=== PATIENT | male | born 1930 | race Caucasian/White ===

== ENCOUNTER → 2017-07-04 | Outpatient (CLI) | payer OTHER | LOC: FIMAGING 10:21 | PROVIDERS: ATTEND Internal Medicine Hematology & Oncology | DX: C79.51 Secondary malignant neoplasm of bone (principal); C61 Malignant neoplasm of prostate | CPT/HCPCS: 78306; A9503 ==

== ENCOUNTER → 2017-07-12 | Outpatient (CLI) | payer OTHER | LOC: FIMAGING 15:57 | PROVIDERS: ATTEND Internal Medicine Hematology & Oncology ==

== ENCOUNTER 2018-10-27 10:36 | Inpatient (IN) | payer MEDICAID, OTHER ==
[2018-10-27] MEDS ORDERED: IOPAMIDOL (ISOVUE-300) 100 ML BTL ONE (11:00)
[2018-10-27 11:01] LABS: PLATELET COUNT 155 10^3/uL (150-400)
--- NOTE | 2018-10-27 12:18 | EDPHY ---
General Time Seen by Provider: 10/27/18 10:52 Narrative: CHIEF COMPLAINT: Constipation HISTORY OF PRESENT ILLNESS: Patient presents by EMS and is seen at time of arrival with complaints of constipation lower abdominal pain. He is accompanied by his family at bedside. They report that over the past 2 days he has been increasingly weak with difficulty having bowel movements. He does have history of prostate cancer with multiple areas of metastases. He is not on chemotherapy but he is on steroids, Lupron and calcium therapy. He has had no bowel movement in 5 days. He has lower abdominal and rectal pain. No bleeding. No chest pain, fever, shortness of breath or cough. He is here visiting his family as they have been unable to return home due to weather. REVIEW OF SYSTEMS: 10 systems were reviewed and negative with the exception of the elements mentioned in the history of present illness. PCP: Located in [place] SPECIALISTS: Dr. Andrade PAST MEDICAL HISTORY: Metastatic Prostate cancer, PAST SURGICAL HISTORY: No recent surgical history SOCIAL HISTORY: Never smoker. Lives independently with his spouse in [place] FAMILY HISTORY: Noncontributory EXAMINATION: Vitals: Triage VS reviewed General Appearance: Alert, no distress. Frail. Nontoxic Head: normocephalic, atraumatic Eyes: Pupils equal and round, no conjunctival pallor or injection ENT, Mouth: Mucous membranes moist Neck: Normal inspection, supple, non-tender Respiratory: Mild rhonchi. No crackles Cardiovascular: Regular rate and rhythm. No murmur Gastrointestinal: Abdomen is soft and nondistended. Bowel sounds decreased all 4 quadrants. No tympany. No rigidity. No guarding. Mild tenderness in lower quadrants per Back: non-tender, no bony abnormalities Neurological: A&O, nonfocal, normal gait Skin: Warm and dry, no rash Extremities: Nontender, no pedal edema Psychiatric: Mood and affect normal DIFFERENTIAL DIAGNOSES: Including but not limited to constipation, obstipation, colonic obstruction, volvulus, small-bowel obstruction, sepsis MDM: 10:50 a.m. Two weeks history of lower abdominal pain and constipation with increasing pain over the past 24 hr. Does have a history of prostate cancer. His vital signs are within normal limits. I have ordered i-STAT to expedite his CT scan the abdomen pelvis. He has no respiratory or cardiac complaints. 11:30 a.m. Laboratory studies reveal leukocytosis with some liver abnormalities. This is consistent with known liver Mets. 12:15 p.m. Notified by radiologist Dr. Khan. CT scan abdomen pelvis does reveal constipation. There is also increased metastatic involvement of the sacrum as documented. I have re-evaluated the patient and the family is not comfortable taking home with likely to be admitted for observation and for his treatments constipation. I do feel this is reasonable given his comorbidities and age. 12:30 p.m. Case discussed with hospitalist. Patient be admitted to Dr. Malik. Admitted stable condition. SUPERVISION: Patient was independently examined, but I discussed the case with my secondary supervising physician Dr. Santacruz CONSULTATION: None. Hospitalist admission - Diagnostics Imaging Results: Imaging Impressions Abdomen CT 10/27/18 10:51 Impression: 1. Interval decrease in periaortic and pelvic lymphadenopathy as detailed above. 2. Progression of osseous metastatic disease with some loss of the cortex especially around the sacrum extending in the presacral region around neuroforamen as well as into the caudal aspect of the spinal canal and posterior to L5 as well as involving the right posterior iliac wing extending into the adjacent soft tissues. No new logic fracture seen. 3. Development of small bibasilar pleural effusions with adjacent compressive atelectatic change. 4. Small pulmonary nodules suspected at the lung bases similar to the prior study Findings discussed with [facility] PAC at 12:17 hour, 10/27/2018. Chest X-Ray 10/27/18 10:53 Impression: 1. Left basilar atelectasis versus pneumonia. 2. Extensive sclerotic bone metastasis. Imaging: Discussed imaging studies w/ outside plant technician Radiologist, I viewed and interpreted images myself - History History Review: I reviewed the patient's medical records, I obtained additional history from the patient's family Smoking Status: Never smoked - Objective Vital Signs: Initial Vital Signs Temperature (C) 98.8 F 10/27/18 10:36 Heart Rate 91 10/27/18 10:36 Blood Pressure 110/66 10/27/18 10:36 O2 Sat (%) 94 10/27/18 10:36 O2 Delivery Mode Nasal Cannula O2 (L/minute) 2 Allergies/Adverse Reactions: Penicillins Allergy (Verified 10/27/18 14:09) Rash Home Medications: Medication Instructions Recorded Herbals/Supplements -Info Only 1 each PO AD 09/02/13 Naproxen Sodium [Aleve 220 MG (*)] 220 mg PO BID PRN 09/05/15 Hydrocodone/APAP 5/325 [[place] 1 each PO Q4H PRN 10/27/18 5/325 (*)] Levothyroxine [Synthroid 50 mcg 50 mcg PO DAILY06 10/27/18 (*)] Multivitamins [Multivitamin (*)] 1 each PO DAILY 10/27/18 Laboratory Results: Laboratory Results 10/27/18 10:45 10/27/18 10:45 10/27/18 10/27/18 10/27/18 11:31 11:03 10:50 WBC RBC Hgb POC Hgb 10.5 gm/dL L gm/dL 10.9 gm/dL L gm/dL (13.7-17.5) (13.7-17.5) Hct POC Hct 31 % L % 32 % L % (40-51) (40-51) MCV MCH MCHC RDW Plt Count MPV Neut % (Auto) Lymph % (Auto) [place] % (Auto) Eos % (Auto) Baso % (Auto) Nucleat RBC Rel Count Absolute Neuts (auto) Absolute Lymphs (auto) Absolute Monos (auto) Absolute Eos (auto) Absolute Basos (auto) Absolute Nucleated RBC Immature Gran % Seg Neutrophils % Band Neutrophils % Lymphocytes % Monocytes % Eosinophils % Basophils % Metamyelocytes % Myelocytes % Promyelocytes % Blast Cells % Immature Gran # Absolute Seg Neuts Absolute Band Neuts Absolute Lymphocytes Absolute Monocytes Absolute Eosinophils Absolute Basophils Absolute Metamyelocyte Absolute Myelocytes Absolute Promyelocytes Absolute Plasma Cells Nucleated RBCs Absolute Blast Cells Plasma Cells % Platelet Estimate Polychromasia Echinocytes VBG Lactic Acid 1.4 mmol/L mmol/L (0.7-2.1) POC Sodium 135 mEq/L mEq/L 132 mEq/L L mEq/L (135-145) (135-145) Sodium POC Potassium 4.2 mEq/L mEq/L 4.0 mEq/L mEq/L (3.3-5.0) (3.3-5.0) Potassium POC Chloride 103 mEq/L mEq/L 101 mEq/L mEq/L (97-110) (97-110) Chloride Carbon Dioxide Anion Gap POC BUN 23 mg/dL mg/dL 19 mg/dL mg/dL (7-23) (7-23) BUN Creatinine POC Creatinine 0.7 mg/dL mg/dL 0.8 mg/dL mg/dL (0.7-1.3) (0.7-1.3) Estimated GFR Glucose POC Glucose 75 mg/dL mg/dL 82 mg/dL mg/dL (70-100) (70-100) Calcium Total Bilirubin Conjugated Bilirubin Unconjugated Bilirubin AST ALT Alkaline Phosphatase Total Protein Albumin Lipase TSH 10/27/18 10/27/18 10/27/18 10:45 10:45 10:45 WBC 19.88 10^3/uL H 10^3/uL (3.80-9.50) RBC 3.65 10^6/uL L 10^6/uL (4.40-6.38) Hgb 11.2 g/dL L g/dL (13.7-17.5) POC Hgb Hct 32.7 % L % (40.0-51.0) POC Hct MCV 89.6 fL fL (81.5-99.8) MCH 30.7 pg pg (27.9-34.1) MCHC 34.3 g/dL g/dL (32.4-36.7) RDW 16.2 % H % (11.5-15.2) Plt Count 155 10^3/uL 10^3/uL (150-400) MPV 11.5 fL fL (8.7-11.7) Neut % (Auto) Not Reported Lymph % (Auto) Not Reported [place] % (Auto) Not Reported Eos % (Auto) Not Reported Baso % (Auto) Not Reported Nucleat RBC Rel Count Not Reported Absolute Neuts (auto) Not Reported Absolute Lymphs (auto) Not Reported Absolute Monos (auto) Not Reported Absolute Eos (auto) Not Reported Absolute Basos (auto) Not Reported Absolute Nucleated RBC Not Reported Immature Gran % Not Reported Seg Neutrophils % 73.0 % % Band Neutrophils % 9.0 % % Lymphocytes % 5.0 % % Monocytes % 11.0 % % Eosinophils % 0.0 % % Basophils % 0.0 % % Metamyelocytes % 2.0 % % Myelocytes % 0.0 % % Promyelocytes % 0.0 % % Blast Cells % 0.0 % % Immature Gran # Not Reported Absolute Seg Neuts 14.51 10^3/uL H 10^3/uL (1.70-6.50) Absolute Band Neuts 1.79 10^3/uL H 10^3/uL (0.00-0.70) Absolute Lymphocytes 0.99 10^3/uL L 10^3/uL (1.00-3.00) Absolute Monocytes 2.19 10^3/uL H 10^3/uL (0.30-0.80) Absolute Eosinophils 0.00 10^3/uL L 10^3/uL (0.03-0.40) Absolute Basophils 0.00 10^3/uL L 10^3/uL (0.02-0.10) Absolute Metamyelocyte 0.40 10^3/mL H 10^3/mL (0.00-0.00) Absolute Myelocytes 0.00 10^3/mL 10^3/mL (0.00-0.00) Absolute Promyelocytes 0.00 10^3/uL 10^3/uL (0.00-0.00) Absolute Plasma Cells 0.00 10^3/uL 10^3/uL (0.00-0.00) Nucleated RBCs 0 /100 WBC /100 WBC (0-0) Absolute Blast Cells 0.00 10^3/uL 10^3/uL (0.00-0.00) Plasma Cells % 0.0 % % Platelet Estimate ADEQUATE (ADEQ) Polychromasia 1+ H Echinocytes 1+ H VBG Lactic Acid POC Sodium Sodium 130 mEq/L L mEq/L (135-145) POC Potassium Potassium 4.3 mEq/L mEq/L (3.5-5.2) POC Chloride Chloride 104 mEq/L mEq/L (97-110) Carbon Dioxide 20 mEq/l L mEq/l (22-31) Anion Gap 6 mEq/L mEq/L (6-14) POC BUN BUN 20 mg/dL mg/dL (7-23) Creatinine 0.8 mg/dL mg/dL (0.7-1.3) POC Creatinine Estimated GFR > 60 Glucose 75 mg/dL mg/dL (70-100) POC Glucose Calcium 7.0 mg/dL L mg/dL (8.5-10.4) Total Bilirubin 1.4 mg/dL mg/dL (0.1-1.4) Conjugated Bilirubin 0.7 mg/dL H mg/dL (0.0-0.5) Unconjugated Bilirubin 0.7 mg/dL mg/dL (0.0-1.1) AST 79 IU/L H IU/L (17-59) ALT 72 IU/L IU/L (21-72) Alkaline Phosphatase 335 IU/L H IU/L (38-126) Total Protein 4.8 g/dL L g/dL (6.3-8.2) Albumin 2.2 g/dL L g/dL (3.5-5.0) Lipase < 10 IU/L L IU/L (23-300) TSH Pending Medications Given: Polyethylene Glycol (Miralax) 17 gm PO DAILY MAREN PRN Reason: Protocol Stop: 04/25/19 12:59 Last Admin: 10/27/18 13:22 Dose: 17 gm Discontinued Medications Fentanyl (Sublimaze) 50 mcg IVP ONCE ONE Stop: 10/27/18 13:15 Last Admin: 10/27/18 13:19 Dose: 50 mcg Point of Care Test Results: Chemistry 10/27/18 10/27/18 11:03 10:50 POC Sodium 135 mEq/L mEq/L 132 mEq/L L mEq/L (135-145) (135-145) POC Potassium 4.2 mEq/L mEq/L 4.0 mEq/L mEq/L (3.3-5.0) (3.3-5.0) POC Chloride 103 mEq/L mEq/L 101 mEq/L mEq/L (97-110) (97-110) POC BUN 23 mg/dL mg/dL 19 mg/dL mg/dL (7-23) (7-23) POC Creatinine 0.7 mg/dL mg/dL 0.8 mg/dL mg/dL (0.7-1.3) (0.7-1.3) POC Glucose 75 mg/dL mg/dL 82 mg/dL mg/dL (70-100) (70-100) ISTAT H&H 10/27/18 10/27/18 11:03 10:50 POC Hgb 10.5 gm/dL L gm/dL 10.9 gm/dL L gm/dL (13.7-17.5) (13.7-17.5) POC Hct 31 % L % 32 % L % (40-51) (40-51) Departure - Departure Disposition: [facility] Inpatient Acute Clinical Impression: Abdominal pain Qualifiers: Abdominal location: lower abdomen, unspecified Qualified Code(s): R10.30 - Lower abdominal pain, unspecified Constipation Qualifiers: Constipation type: unspecified constipation type Qualified Code(s): K59.00 - Constipation, unspecified Condition: Good
[2018-10-27] MEDS ORDERED: LACTULOSE 20 GM/30 ML UDCUP PO PRN (12:51)
[2018-10-27] MEDS ORDERED: MAGNESIUM HYDROXIDE 30 ML UDCUP PO PRN (12:51)
[2018-10-27] MEDS ORDERED: BISACODYL 10 MG SUPP PR PRN (12:51)
[2018-10-27] MEDS ORDERED: fentaNYL 100 MCG/2 ML INJ IVP ONE (13:14)
[2018-10-27] MEDS ORDERED: fentaNYL 100 MCG/2 ML INJ ONE (13:15)
[2018-10-27] MEDS ORDERED: POLYETHYLENE GLYCOL 3350 17 GM PKT ONE (13:17)
[2018-10-27] MEDS: POLYETHYLENE GLYCOL 3350 17 GM PKT PO SCH (13:22)
--- NOTE | 2018-10-27 14:29 | ASMTCMCOM ---
"CM Note CM Note Notes: 88 year old male admitted via ED with c/o increasing constipation and weakness. 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 Normally lives with his in [facility]. His PCP is there but he is followed by Dr. Andrade at [facility]. CM to follow for needs.| Plan: TBD Date Signed: 10/27/2018 02:28 PM Electronically Signed By:Elisabeth Mauro RN"
[2018-10-27] MEDS ORDERED: ONDANSETRON DISINTEGRATING 4 MG TAB PO PRN (15:07)
[2018-10-27] MEDS ORDERED: ONDANSETRON 4 MG/2 ML VIAL IVP PRN (15:07)
[2018-10-27] MEDS ORDERED: NAPROXEN SODIUM 220 MG TAB PO PRN (15:11)
[2018-10-27] MEDS ORDERED: PHENYLEPHRINE HCL 1 SUPP PR PRN (15:26)
--- NOTE | 2018-10-27 16:02 | GHP ---
DATE OF ADMISSION: 10/27/2018 CHIEF COMPLAINT: Constipation with ongoing back pain secondary to metastatic prostate cancer. HISTORY OF PRESENT ILLNESS: The patient is an 88-year-old gentleman who has known metastatic prostate cancer with multiple areas of metastasis who presented to the emergency room due to complaints of constipation. Approximately 2 weeks ago, he was seen by Dr. Andrade, his oncologist. It was noted that he had a high calcium level due to poor hydration. He also at that time was noted to have ongoing pain. It was recommended that he take steroids and pain meds. Initially, he improved, but then over the last 2 weeks, he has deteriorated. His main complaint is that he has been constipated, having hemorrhoids, and has not been eating and drinking well. Most of my information is being collected from his and daughter who are at the bedside. He is extremely hard of hearing. He was also feeling quite poorly. He did try a laxative without improvement. His last regular bowel movement was approximately 2 weeks ago. During my interview, when I asked him if he is in pain, he said he is having pain in his back, hips, thighs. He is having overall generalized body pain secondary from his cancer. He denies any night sweats, shortness of breath. Says his vision is somewhat blurry. He denies any problems with urination except that he has chronic difficulty with starting the flow. PAST MEDICAL HISTORY: 1. Idiopathic pancreatitis. 2. Constipation. 3. Protein calorie malnutrition. 4. Prostate cancer with diffuse osseous metastasis throughout the entire skeletal system. 5. He has had digestive problems since he was a child. PAST SURGICAL HISTORY: 1. Inguinal hernia repair. 2. Left hip replacement. SOCIAL HISTORY: He is . He used to live here in [place], but moved to the [place] area. He has been visiting his daughter here in the [place] area since early September. He is . His is at the bedside. FAMILY HISTORY: Reviewed and noncontributory. MEDICATIONS: Include a multivitamin 1 tab daily, herbal supplements 1 tab daily , Aleve 220 mg p.o. b.i.d. p.r.n., Synthroid 50 mcg daily, hydrocodone/APAP 5/ 325 one tab every 4 hours. ALLERGIES: Penicillin causes a rash. REVIEW OF SYSTEMS: A 10-point review of systems was performed, was negative other than pertinent positives in the HPI and Past Medical History. PHYSICAL EXAM: GENERAL: The patient is an 88-year-old male who appears very dehydrated and overall in fair health. VITAL SIGNS: Blood pressure is 111/60, heart rate 92, respiratory rate 16, O2 sats on 2 L are 94%, temperature 36.4 Celsius. EYES: Pupils are equal and reactive. EOMs are intact. No conjunctival injection noted. ENT: He is very hard of hearing. He has hearing aids in place. NECK: Trachea is midline. CARDIOVASCULAR: He is in a regular rate and rhythm. No murmurs, rubs, gallops noted. CHEST/LUNGS: Normal respiratory effort. Diminished at the bases, but otherwise clear, without wheezes, rales, rhonchi. ABDOMEN: Soft, nontender. He has bowel sounds noted in all 4 quadrants. SKIN: No rashes, ulcer. He has trace ankle edema. MUSCULOSKELETAL: He has equal upper and lower body strength. PSYCHIATRIC: He is alert and oriented. Normal mood, affect. Normal judgment, insight, and normal memory. DATA REVIEWED: A chemistry showed sodium 135, potassium 4.2, chloride of 103, glucose of 75, creatinine 0.7, calcium is 7, alkaline phosphatase is 335. His conjugated bilirubin is 0.7, unconjugated 0.7, albumin is 2.2. CBC: White blood cell count is 19.88, hemoglobin 11.2, hematocrit of 32.7. Second hemoglobin was checked which is 10.9. Venous lactic acid is 1.4. Urinalysis shows 4+ urobilinogen, trace ketones and a specific gravity of 1.035. IMAGIN. A CT of the abdomen was performed. This showed interval decrease in periaortic and pelvic lymphadenopathy as detailed in the report. He has progression of osseous metastatic disease with some loss of the cortex, especially around the sacrum, extending in the presacral region, around the neural foramen, as well as into the caudal aspect of the spinal canal and posterior to L5, as well as involving the right posterior iliac wing extending into the adjacent soft tissues. No new fractures seen. He has development of small basilar pleural effusions with adjacent compressive atelectatic change. He has small pulmonary nodules suspected at the lung bases, similar to a prior study. 2. Chest x-ray shows a left basilar atelectasis versus pneumonia. He has extensive bone metastasis. I reviewed the patient's care with Ismael Culp, physician assistant produce manager, in the emergency room. ASSESSMENT/PLAN: 1. Severe constipation. Will start him on a bowel regimen. He appears very dehydrated. Will gently hydrate him overnight. If he has no response with the regimen, could do a trial of magnesium citrate or a partial GoLYTELY prep. Check a TSH. Avoid narcotics and do a trial of tramadol and Tylenol. 2. Leukocytosis. This may be stress induced and also, he appears very dehydrated. Will recheck his labs in the morning. 3. Hypocalcemia with a recent history of hypercalcemia. Will recheck labs in the morning. 4. Prostate cancer with diffuse metastasis. Will let Oncology know of the patient's admission. 5. Pain due to bone metastasis. Trial of tramadol. May need more aggressive treatment. 6. Hyponatremia. Likely from hypovolemia. Will check urine studies. 7. Code status: Do Not Resuscitate. 8. Length of stay: He will likely require less than a 2-midnight stay, which will make him observation status. This can be reevaluated in the morning. /[id number]/MODL MTDD
[2018-10-27] MEDS: traMADol 50 MG TAB PO PRN (16:27)
[2018-10-27] MEDS: HYDROCODONE/APAP 5/325 TAB PO PRN ×2 (16:27→20:37)
[2018-10-27] MEDS: SENNOSIDES/DOCUSATE SODIUM TAB PO SCH (20:37)
[2018-10-28 04:49] LABS: PLATELET COUNT 140 10^3/uL (150-400)
[2018-10-28] MEDS: LEVOTHYROXINE 50 MCG TAB PO SCH (05:20)
[2018-10-28] MEDS ORDERED: ENOXAPARIN 40 MG/0.4 ML SYR SC SCH (09:00)
[2018-10-28] MEDS: SENNOSIDES/DOCUSATE SODIUM TAB PO SCH (10:39)
[2018-10-28] MEDS: POLYETHYLENE GLYCOL 3350 17 GM PKT PO SCH (10:39)
[2018-10-28] MEDS: MULTIVITAMINS 1 EACH TAB PO SCH (10:39)
[2018-10-28] MEDS: HYDROCODONE/APAP 5/325 TAB PO PRN ×3 (10:45→23:16)
[2018-10-28] MEDS ORDERED: MAGNESIUM CITRATE 300 ML BOTTLE PO ONE (13:43)
--- NOTE | 2018-10-28 13:50 | HOSPPROG ---
Hospitalist Progress Note Assessment/Plan: 88yo M with prostate cancer with diffuse osseous metastases here with constipation and low back pain. 1. Constipation: Likely related to recent hypercalcemia and opioids. - Trial mag citrate, enema, manual disimpaction 2. Acute on chronic low back/sacral pain: Neuro intact. CT with progression of osseus mets. - Discussed with Dr Brandt, plan for caudal epidural tomorrow - Tramadol, hydrocodone PRN 3. Hyponatremia: Urine studies c/w SIADH. Also element of poor PO. - Continue gentle IVF - Recheck Na this afternoon. If worsening, will stop fluids 4. Hypocalcemia: Suspect r/t lack of PO intake. Replete and monitor. 5. Leukocytosis: Likely r/t recent steroids. No s/s infection. Monitor. 6. Anemia: Chronic and near baseline. 7. Metastatic prostate cancer: Will alert oncology of admission. Consider palliative care. VTE ppx: hold LMWH with procedure, start SCDs Code: DNR Diet: clears, NPO at midnight Dispo: Switch to inpatient Subjective: No BM. Frustrated that nothing has helped. Also with low back/ sacral pain. Both pain and constipation are very irritating to him. Objective: Vital Signs Temp Pulse Resp BP Pulse Ox 36.6 C 96 16 94/48 L 94 10/28/18 08:44 10/28/18 08:44 10/28/18 08:44 10/28/18 08:44 10/28/18 08:44 Laboratory Results 10/28/18 03:54 10/28/18 03:54 10/27/18 10/28/18 10/29/18 05:59 05:59 05:59 Intake Total 1100 200 Output Total 455 250 Balance 645 -50 - Physical Exam Constitutional: no apparent distress, other (elderly, hard of hearing) Eyes: PERRL, anicteric sclera, EOMI Ears, Nose, Mouth, Throat: hearing normal, ears appear normal, no oral mucosal ulcers, dry mucous membranes Cardiovascular: regular rate and rhythym, no murmur, rub, or gallop Respiratory: no respiratory distress, no rales or rhonchi, clear to auscultation Gastrointestinal: normoactive bowel sounds, soft, non-tender abdomen, no palpable masses, distension Genitourinary: no bladder fullness, no bladder tenderness, no renal bruits Skin: no rashes or abrasions, no fluctuance, no induration Musculoskeletal: full muscle strength, no muscle tenderness, normal joint ROM Neurologic: AAOx3, sensation intact bilaterally Psychiatric: interacting appropriately, not anxious, not encephalopathic, thought process linear ICD10 Worksheet Patient Problems: Problems Problem Status Onset Abdominal pain Acute Constipation Acute LAD (lymphadenopathy), intra-abdominal Acute Pancreatitis, acute Acute Prostate enlargement Acute
[2018-10-28] MEDS ORDERED: LACTULOSE 20 GM/30 ML UDCUP PO PRN (13:59)
[2018-10-28] MEDS ORDERED: LACTULOSE 20 GM/30 ML UDCUP PO SCH (16:00)
--- NOTE | 2018-10-28 17:20 | GCON ---
INPATIENT ONCOLOGY CONSULTATION DATE OF CONSULTATION: 10/28/2018 REFERRING PHYSICIAN: Gabino Dunlap MD OUTPATIENT ONCOLOGIST: Edward Andrade MD REASON FOR ADMISSION: Metastatic prostate cancer and constipation. HISTORY OF ILLNESS: The patient is an 88-year-old man with a history of castrate-resistant metastati c prostate cancer. He spends most of the year in [place], but lives here occasionally and sees Dr. Andrade. He has been treated with Lupron and bicalutamide in the past for his metastatic prostat e cancer which is primarily metastatic to bone. Initially, he had a good response, but more recently his PSA has been rising sharply. He was noted to be moderately hypercalcemic on October 15 with a calcium of 11.8 and he received a dose of Zometa as well as IV fluids in clinic. He is on oxycodon e for bone metastases, but says that he has not changed the dose recently. Dr. Andrade had recommend ed that he start on Xtandi, but the patient wanted to wait till he returned to [place] to speak to his oncologist there. The patient states that he has not had a bowel movement in 2-1/2 weeks and came to the hospital seeki ng help with that. He denies worsening pain. CT shows overall stable lymph nodes and bone metastase s including metastasis to the sacrum and L5. PAST MEDICAL HISTORY: Metastatic prostate cancer as described above, otherwise unremarkable. CURRENT MEDICATIONS: Include [place], Lovenox 40 mg daily, Synthroid, MiraLAX, tramadol. ALLERGIES: To penicillin. FAMILY HISTORY: Noncontributory. SOCIAL HISTORY: He is a nonsmoker, nondrinker. Lives with family. REVIEW OF SYSTEMS: Aside from the pertinent positives in the HPI, a 14-point review of systems was n egative. EXAMINATION: VITALS: Temperature is 36.6, blood pressure 94/48, heart rate 96, oxygen saturation 94 % on 2 L nasal cannula. GENERAL: He was an elderly man in no acute distress. HEENT: Sclerae anict kaushik. Oropharynx is clear. NECK: Supple without lymphadenopathy. LUNGS: Clear to auscultation bi laterally. CARDIAC: Regular rate and rhythm. No murmurs, gallops, rubs. ABDOMEN: Normoactive bow el sounds. Nontender, non-distended. EXTREMITIES: Without edema. NEUROLOGICAL: He is alert and x 3. Strength and sensation were grossly intact. LABORATORY DATA: White count 16.3, hemoglobin 10.2, platelets 140. Sodium 132, potassium 4.3, chlor john 105, bicarb 19, BUN 26, creatinine 1.0, alkaline phosphatase 247, albumin 1.9. TSH 2.59. Ionize d calcium was low at 1.05. 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 His primary acute i ssue appears to be constipation. This may have been triggered by the hypercalcemia few weeks ago, bu t his calcium has now normalized. He does not appear to be having worsening pain from any of his met astases. RECOMMENDATIONS: 1. Bowel regimen to relieve constipation. We will also give him hydration and encourage ambulation. 2. Agree with Dr. Andrade that the next step in his prostate cancer therapy would be to add Xtandi o r Zytiga. The patient would like to defer this until he sees his oncologist in [place], which s eems reasonable. Thank you for the consultation. We will continue to follow patient with you while he is in the [facility]. /[id number]/MODL
--- NOTE | 2018-10-28 18:08 | PDMN ---
Medical Necessity Medical necessity: Change to inpt as of 10/28/18 @ 0162. Pt meets inpt criteria per MD order and MCG M-63, Back Pain. 88 y/o w/metastatic prostate cancer admitted w/severe constipation and low back pain. Upgraded to inpt for persistent constipation, persistent severe low back pain. CT shows progression of osseus mets, plan for caudal epidural tomorrow. Hyponatremia (132), urine studies consistent w/SIADH, cont IVF. Est LOS>2MN for med nec ongoing eval/ management of above.
[2018-10-28] MEDS: NS 1,000 ML IV SCH (18:40)
[2018-10-28] MEDS: traMADol 50 MG TAB PO PRN (18:40)
--- NOTE | 2018-10-28 21:32 | ASMTCMCOM ---
CM Note CM Note Notes: Patient plan of care reviewed in am rounds. Willian is an 88 year old male who is visiting from [place] with his daughter. He has had increasing weakness, dehydration and constipation over the last few weeks. Per CT his disease is advancing and he may be palliative care appropriate. CM to follow for needs. Plan: TBD Date Signed: 10/28/2018 01:47 PM Electronically Signed By:Elisabeth Mauro RN
[2018-10-29] MEDS: SENNOSIDES/DOCUSATE SODIUM TAB PO SCH ×3 (00:30→23:47)
[2018-10-29] MEDS: traMADol 50 MG TAB PO PRN (01:11)
[2018-10-29] MEDS: NS 1,000 ML IV SCH ×2 (01:15→21:51)
[2018-10-29] MEDS: LEVOTHYROXINE 50 MCG TAB PO SCH (06:15)
[2018-10-29] MEDS: MULTIVITAMINS 1 EACH TAB PO SCH (08:34)
[2018-10-29] MEDS: POLYETHYLENE GLYCOL 3350 17 GM PKT PO SCH (08:38)
--- NOTE | 2018-10-29 11:51 | SOAPPROG ---
SOAP Progress Note Assessment/Plan: Assessment: 1. Castrate resistant metastatic prostate cancer 2. Constipation 3. Hemorrhoids Plan: - consider surgical consult re: hemorrhoid, though I advised pt that conservative measures often work best - no Rx for prostate cancer in the hospital - will sign off at this point as no ongoing inpatient oncologic issues. Pt plans to f/u with his oncologist in [place] after discharge. 10/29/18 11:49 Subjective: large BM last night. complaining re: hemorrhoid, would like it surgically removed. Objective: exam: unchanged Vital Signs Temp Pulse Resp BP Pulse Ox 36.4 C 83 12 92/50 L 91 L 10/29/18 08:29 10/29/18 08:29 10/29/18 08:29 10/29/18 08:29 10/29/18 08:29 Laboratory Results 10/29/18 04:11 10/29/18 04:11 10/28/18 10/29/18 10/30/18 05:59 05:59 05:59 Intake Total 2500 Output Total 200 Balance 2300 ICD10 Worksheet Patient Problems: Problems Problem Status Onset Abdominal pain Acute Constipation Acute LAD (lymphadenopathy), intra-abdominal Acute Pancreatitis, acute Acute Prostate enlargement Acute
[2018-10-29] MEDS: HYDROCODONE/APAP 5/325 TAB PO PRN ×2 (12:44→21:41)
--- NOTE | 2018-10-29 15:04 | ASMTCMCOM ---
CM Note CM Note Notes: Patient plan of care reviewed in am rounds. He is still having c/o constipation. Per therapy he is deconditioned and may need SNF rehab. He lives in [place] and wishes to return there. CM to follow for needs. Plan: TBD Date Signed: 10/29/2018 03:03 PM Electronically Signed By:Elisabeth Mauro RN
--- NOTE | 2018-10-29 15:59 | HOSPPROG ---
Hospitalist Progress Note Assessment/Plan: 88yo M with prostate cancer with diffuse osseous metastases here with constipation. 1. Constipation: Improving. Related to recent hypercalcemia, dehydration, opioids. - Mineral oil enema today - May need manual disimpaction - Consider partial golytely prep tomorrow if not improving. Continue additional bowel regimen 2. Chronic low back/sacral pain: Neuro intact. CT with progression of osseus mets. - Discussed with Dr Brandt, could consider caudal epidural but he's not having increased pain at this time so will hold. - Tramadol, hydrocodone PRN 3. Hyponatremia: Stable. Urine studies c/w SIADH. Also element of poor PO. - Continue gentle IVF, monitor daily 4. Hypocalcemia: Suspect r/t lack of PO intake. Replete and monitor. 5. Leukocytosis: Down-trending. Likely r/t recent steroids. No s/s infection. Monitor. 6. Anemia: Chronic and near baseline. 7. Metastatic prostate cancer: Oncology aware of admission. Consider palliative care. VTE ppx: LMWH Code: DNR Diet: regular Dispo: Remain inpatient until having BM. unsafe to dc as high risk for bowel obstruction Subjective: Frustrated with some of his care. He has had some BMs. Still feels like large ball of stool is there. Minimal abdominal pain. Decided against epidural injection as actually not having back pain, just constipated. Objective: Vital Signs Temp Pulse Resp BP Pulse Ox 36.4 C 83 16 94/52 L 92 10/29/18 12:22 10/29/18 12:22 10/29/18 12:22 10/29/18 12:22 10/29/18 12:22 Laboratory Results 10/29/18 04:11 10/29/18 04:11 10/28/18 10/29/18 10/30/18 05:59 05:59 05:59 Intake Total 2500 Output Total 200 Balance 2300 - Physical Exam Constitutional: other (frail, elderly) Eyes: PERRL, anicteric sclera, EOMI Ears, Nose, Mouth, Throat: moist mucous membranes, hearing normal, ears appear normal, no oral mucosal ulcers Cardiovascular: regular rate and rhythym, no murmur, rub, or gallop, No edema Respiratory: no respiratory distress, no rales or rhonchi, clear to auscultation Gastrointestinal: normoactive bowel sounds, tenderness (lower), No no palpable masses, No guarding Genitourinary: no bladder fullness, no bladder tenderness, no renal bruits Skin: no rashes or abrasions, no fluctuance, no induration Musculoskeletal: full muscle strength, no muscle tenderness, normal joint ROM Neurologic: AAOx3, sensation intact bilaterally Psychiatric: interacting appropriately, not anxious, not encephalopathic, thought process linear ICD10 Worksheet Patient Problems: Problems Problem Status Onset Abdominal pain Acute Constipation Acute LAD (lymphadenopathy), intra-abdominal Acute Pancreatitis, acute Acute Prostate enlargement Acute
[2018-10-30] MEDS: HYDROCODONE/APAP 5/325 TAB PO PRN ×3 (03:20→21:08)
[2018-10-30] MEDS: LEVOTHYROXINE 50 MCG TAB PO SCH (06:42)
[2018-10-30] MEDS: SENNOSIDES/DOCUSATE SODIUM TAB PO SCH ×2 (08:50→21:09)
[2018-10-30] MEDS: MULTIVITAMINS 1 EACH TAB PO SCH (08:51)
[2018-10-30] MEDS: POLYETHYLENE GLYCOL 3350 17 GM PKT PO SCH ×2 (08:51→21:05)
--- NOTE | 2018-10-30 10:55 | HOSPPROG ---
Hospitalist Progress Note Assessment/Plan: 88yo M with prostate cancer with diffuse osseous metastases here with constipation. 1. Constipation: Improving. Much better after enema. Related to recent hypercalcemia, dehydration, opioids. - Hold on futher suppositories/enema - Continue stool softeners/laxatives, IVF 2. Chronic low back/sacral pain: Neuro intact. CT with progression of osseus mets. - Discussed with Dr Brandt, could consider caudal epidural but he's not having increased pain at this time so will hold. - Tramadol, hydrocodone PRN 3. Hyponatremia: Improving. Urine studies c/w SIADH. Also element of poor PO. - Continue gentle IVF, monitor daily 4. Hypocalcemia: Suspect r/t lack of PO intake. Replete and monitor. 5. Leukocytosis: Down-trending. Likely r/t recent steroids. No s/s infection. Monitor. 6. Anemia: Chronic and near baseline. 7. Metastatic prostate cancer: Oncology aware of admission. Consider palliative care. 8. Deconditioning: Rather weak. - PT/OT recommending SNF, patient is hesitant but family very interested. Will discuss with CM VTE ppx: LMWH Code: DNR Diet: regular Dispo: Remain inpatient, unsafe for dc at this time. Needs SNF Subjective: Had one large but looser BM last night. Feeling better today. No abdominal pain. Ate small breakfast which was first meal in awhile. Objective: Vital Signs Temp Pulse Resp BP Pulse Ox 36.6 C 84 18 98/54 L 92 10/30/18 08:58 10/30/18 08:58 10/30/18 08:58 10/30/18 08:58 10/30/18 08:58 Laboratory Results 10/30/18 04:45 10/30/18 04:45 10/29/18 10/30/18 10/31/18 05:59 05:59 05:59 Intake Total 2500 25 Output Total 200 750 Balance 2300 -725 - Physical Exam Constitutional: no apparent distress, cachectic, other (elderly,frail) Eyes: PERRL, anicteric sclera, EOMI Ears, Nose, Mouth, Throat: moist mucous membranes, hearing normal, ears appear normal, no oral mucosal ulcers Cardiovascular: regular rate and rhythym, no murmur, rub, or gallop Respiratory: no respiratory distress, no rales or rhonchi, clear to auscultation Gastrointestinal: normoactive bowel sounds, soft, non-tender abdomen, no palpable masses Genitourinary: no bladder fullness, no bladder tenderness, no renal bruits Skin: no rashes or abrasions, no fluctuance, no induration Musculoskeletal: generalized weakness Neurologic: AAOx3, sensation intact bilaterally Psychiatric: interacting appropriately, not anxious, not encephalopathic, thought process linear ICD10 Worksheet Patient Problems: Problems Problem Status Onset Abdominal pain Acute Constipation Acute LAD (lymphadenopathy), intra-abdominal Acute Pancreatitis, acute Acute Prostate enlargement Acute
--- NOTE | 2018-10-30 15:49 | ASMTCMCOM ---
CM Note CM Note Notes: Met with patient how is adamant that he is not goiing to SNF. He states he is not going to walk or climb up stairs . He became tearful and states he thinks he is ready to pursue his options for end of life care. He has one goal in his life to finish involving a sale of property here in [place]. I attempted to reach out to his family but they were unavailable without a identifying voice mail. CM to follow. Would likely benefit from palliative/hopsice care. Plan: TBD Date Signed: 10/30/2018 03:48 PM Electronically Signed By:Elisabeth Mauro RN
[2018-10-31] MEDS: NS 1,000 ML IV SCH ×2 (00:24→15:00)
[2018-10-31] MEDS: HYDROCODONE/APAP 5/325 TAB PO PRN ×3 (04:53→19:49)
[2018-10-31] MEDS: LEVOTHYROXINE 50 MCG TAB PO SCH (05:00)
--- NOTE | 2018-10-31 14:26 | ASMTCMCOM ---
CM Note CM Note Notes: Discussed pt's care in rounds. Hospitalist to speak with pt today re hospice care. Family has said that they are unable to care for him at home and pt has refused referral to SNF. It is unclear whether in-pt hospice is an option. CM to follow. D/C Plan: TBD Date Signed: 10/31/2018 02:26 PM Electronically Signed By:Courtney Daugherty
[2018-10-31] MEDS ORDERED: DEXAMETHASONE 2 MG TAB PO ONE (14:36)
[2018-10-31] MEDS ORDERED: SENNOSIDES/DOCUSATE SODIUM TAB PO PRN (14:40)
[2018-10-31] MEDS: POLYETHYLENE GLYCOL 3350 17 GM PKT PO SCH ×2 (14:57→15:16)
[2018-10-31] MEDS: ENOXAPARIN 40 MG/0.4 ML SYR SC SCH (14:58)
[2018-10-31] MEDS: MULTIVITAMINS 1 EACH TAB PO SCH (15:15)
[2018-10-31] MEDS: SENNOSIDES/DOCUSATE SODIUM TAB PO SCH (15:16)
--- NOTE | 2018-10-31 16:16 | HOSPPROG ---
Hospitalist Progress Note Assessment/Plan: 88yo M with prostate cancer with diffuse osseous metastases here with constipation. Goals of Care: Lengthy (>1 hour) discussion with patient, , and daughter today. Patient does not want to pursue any additional treatments for his cancer. 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 He is adamant about not going to SNF. I am concerned that his family will not be able to care for him in his current state. We will try to improve his pain so that he can work with therapy services while here with the hope of being able to go home. I will consult palliative care for further discussion of hospice services, as this seems most in line with his goals. He is already DNR, which is appropriate. I spoke with Erica Obrien (friends hospital care/hospice physician) and a nurse from their group will plan to come to hospital tomorrow to discuss hospice services and provide additional information. 1. Constipation: Improved. Related to recent hypercalcemia, dehydration, opioids. - Hold on futher suppositories/enema - He is agreeable to daily miralax, which is scheduled. Can use additional agents PRN 2. Acute on chronic cancer pain: Mostly low back/sacral area. CT with progression of osseus mets. - Discussed with Dr Brandt, could consider caudal epidural but patient not interested - Trial dexamethasone - Continue hydrocodone PRN. If needing a lot, consider long-acting opioid 3. Right shoulder pain: Exam consistent with supraspinatus tear - Will not pursue imaging (MRI) as not surgical candidate - Could consider steroid injection but already starting systemic steroids as above - Recommend PT specifically work with him on this 4. Tachycardia: New today. ECG shows what appears to be atrial flutter with 2:1 conduction. - He is asymptomatic from this, BP low but at baseline - Given discussion re: goals of care, we are not initiating systemic anticoagulation or pursuing cardioversion - Will hopefully improve with pain control - Continue telemetry for now, plan to discuss discontinuing tomorrow 5. Hyponatremia: Stable with IVF. Urine studies c/w SIADH. Also element of poor PO. - Continue gentle IVF, monitor daily 6. Hypocalcemia: Suspect r/t lack of PO intake. Replete and monitor. 7. Leukocytosis: Down-trending. Likely r/t recent steroids. No s/s infection. Monitor. 8. Anemia: Chronic and near baseline. 9. Metastatic prostate cancer: Oncology aware of admission. Consider palliative care. 10. Deconditioning: Rather weak. - PT/OT recommending SNF, patient refusing VTE ppx: LMWH Code: DNR Diet: regular Dispo: Remain inpatient, unsafe for dc at this time. Dispo unclear Subjective: Patient has been refusing most therapies. Not working with PT/OT. Not taking bowel regimen. He states that he doesn't have the motivation to work with them and also they cause more pain. Objective: Vital Signs Temp Pulse Resp BP Pulse Ox 36.5 C 117 H 18 90/59 L 91 L 10/31/18 12:00 10/31/18 12:00 10/31/18 12:00 10/31/18 12:00 10/31/18 12:00 Laboratory Results 10/30/18 04:45 10/31/18 04:41 10/30/18 10/31/18 11/01/18 05:59 05:59 05:59 Intake Total 25 1709 Output Total 750 850 400 Balance -725 859 -400 - Physical Exam Constitutional: no apparent distress, other (frail, elderly) Eyes: PERRL, anicteric sclera, EOMI Ears, Nose, Mouth, Throat: moist mucous membranes, hearing normal, ears appear normal, no oral mucosal ulcers Cardiovascular: tachycardia, No edema Respiratory: no respiratory distress, no rales or rhonchi, clear to auscultation Gastrointestinal: normoactive bowel sounds, soft, non-tender abdomen, no palpable masses Genitourinary: no bladder fullness, no bladder tenderness, no renal bruits Skin: no rashes or abrasions, no fluctuance, no induration Musculoskeletal: generalized weakness, other (right shoulder weakness and pain with flexion and abduction, not able to range above shoulder) Neurologic: AAOx3 Psychiatric: interacting appropriately ICD10 Worksheet Patient Problems: Problems Problem Status Onset Abdominal pain Acute Constipation Acute LAD (lymphadenopathy), intra-abdominal Acute Pancreatitis, acute Acute Prostate enlargement Acute
[2018-10-31] MEDS: ACETAMINOPHEN 325 MG TAB PO PRN (22:40)
[2018-11-01] MEDS: LEVOTHYROXINE 50 MCG TAB PO SCH (05:20)
[2018-11-01] MEDS: POLYETHYLENE GLYCOL 3350 17 GM PKT PO SCH (10:09)
[2018-11-01] MEDS: DEXAMETHASONE 4 MG TAB PO SCH (10:09)
[2018-11-01] MEDS: ENOXAPARIN 40 MG/0.4 ML SYR SC SCH (10:10)
[2018-11-01] MEDS: MULTIVITAMINS 1 EACH TAB PO SCH (10:10)
[2018-11-01] MEDS: NS 1,000 ML IV SCH (16:10)
--- NOTE | 2018-11-01 16:31 | HOSPPROG ---
Hospitalist Progress Note Assessment/Plan: 88yo M with prostate cancer with diffuse osseous metastases here with constipation. Goals of Care: Long conversation with patient, daughter, 10/31. Again discussed today. Essentially his goals are in line with hospice care. He does not want any aggressive therapy or new/additional therapies. Family wants to meet with pall care/hospice and meeting planned for tomorrow afternoon with EMANUEL. 1. Constipation: Essentially resolved. Will continue maintenance therapy with daily miralax. 2. Acute on chronic cancer pain: Also improved. Mostly low back/sacral area. CT with progression of osseus mets. - Discussed with Dr Brandt, could consider caudal epidural but patient not interested - Started dexamethasone 10/31 - Continue hydrocodone PRN. If needing a lot, consider long-acting opioid but not now 3. Right shoulder pain: Exam consistent with supraspinatus tear - Will not pursue imaging (MRI) as he's not interested in surgery - Could consider steroid injection but already starting systemic steroids as above - Recommend PT specifically work with him on this 4. Atrial flutter: New 10/31. Asymptomatic and BP stable. - He is not interested in rate controlling meds or other therapies as long as he's asymptomatic - He does not want anticoagulation - Stop telemetry 5. Hyponatremia: Improving with IVF. Monitor daily. 6. Hypocalcemia: Suspect r/t lack of PO intake. Replete and monitor. 7. Leukocytosis: Down-trending. Likely r/t recent steroids. No s/s infection. Monitor. 8. Anemia: Chronic and near baseline. 9. Metastatic prostate cancer: Oncology aware of admission. Consider palliative care. 10. Deconditioning: Rather weak. - PT/OT recommending SNF, patient refusing VTE ppx: LMWH Code: DNR Diet: regular Dispo: Remain inpatient, unsafe for dc at this time. Dispo unclear. Possible home with home health vs inpatient hospice. Subjective: Had formed large BM last night. Got up to bathe with help of MARKETING INSTRUCTOR. Right shoulder pain still bothering him. Objective: Vital Signs Temp Pulse Resp BP Pulse Ox 36.4 C 106 H 16 106/83 H 94 11/01/18 16:09 11/01/18 16:09 11/01/18 16:09 11/01/18 16:09 11/01/18 16:09 Laboratory Results 10/30/18 04:45 12/15/18 04:41 10/31/18 11/01/18 11/02/18 05:59 05:59 05:59 Intake Total 1709 2196 Output Total 766 850 Balance 859 1346 - Physical Exam Constitutional: cachectic, other (frail) Eyes: PERRL, anicteric sclera, EOMI Ears, Nose, Mouth, Throat: moist mucous membranes, hearing normal, ears appear normal, no oral mucosal ulcers Cardiovascular: no murmur, rub, or gallop, tachycardia, No edema Respiratory: no respiratory distress, no rales or rhonchi, clear to auscultation Gastrointestinal: normoactive bowel sounds, soft, non-tender abdomen, no palpable masses Genitourinary: no bladder fullness, no bladder tenderness, no renal bruits Skin: no rashes or abrasions, no fluctuance, no induration Musculoskeletal: full muscle strength, no muscle tenderness, normal joint ROM Neurologic: AAOx3, sensation intact bilaterally Psychiatric: interacting appropriately, not anxious, not encephalopathic, thought process linear ICD10 Worksheet Patient Problems: Problems Problem Status Onset Abdominal pain Acute Constipation Acute LAD (lymphadenopathy), intra-abdominal Acute Pancreatitis, acute Acute Prostate enlargement Acute
--- NOTE | 2018-11-01 16:40 | ASMTCMCOM ---
CM Note CM Note Notes: Reviewed chart regarding discharge plan of care, pt's progress. Per unit rounds, pt's abdominal pain is much improved today. Pt with a new onset of afib/aflutter. Per Dr. Dunlap, pt's goals of care align with hospice - hospice eval and treat order obtained. Referral sent to [facility]. Call placed to Isabel at [facility], per Isabel able to send an RN for an evaluation Saturday at 10:00 AM. Met with pt, pt's Melinda and spoke with pt's dghtr Odalis (via phone). Family requesting later meeting time on Saturday. Call placed to Isabel at [facility], meeting moved to 14:00. Updates provided to ROSHAN Ford, Iain, EDMOND, and Dr. Dunlap. Dghtr wishing to discuss both palliative and hospice options. Per , Melinda, taking pt "home to his dghtr's house may not be an option given his current needs and level of care." Pt and are visiting from out of state. Update provided to EMANUEL. CM will continue to follow. Discharge Plan: To be determined Date Signed: 11/01/2018 04:39 PM Electronically Signed By:Chayito Gonsales RN
--- NOTE | 2018-11-01 18:08 | CPEKG ---
Test Reason : OPEN Blood Pressure : / mmHG Vent. Rate : 119 BPM Atrial Rate : 121 BPM P-R Int : 171 ms QRS Dur : 104 ms QT Int : 335 ms P-R-T Axes : 093 109 000 degrees QTc Int : 472 ms Probably atrial fibrillation Right axis deviation Borderline T wave abnormalities ST elevation, consider inferior injury Confirmed by Keyon Cerna ([id number]) on 11/01/2018 6:07:40 PM Referred By: Confirmed By:Keyon Cerna
[2018-11-01] MEDS: HYDROCODONE/APAP 5/325 TAB PO PRN (21:32)
[2018-11-01] MEDS: ACETAMINOPHEN 325 MG TAB PO PRN (21:34)
[2018-11-02] MEDS: LEVOTHYROXINE 50 MCG TAB PO SCH (05:02)
[2018-11-02] MEDS: NS 1,000 ML IV SCH (05:04)
[2018-11-02] MEDS: MULTIVITAMINS 1 EACH TAB PO SCH (10:23)
[2018-11-02] MEDS: POLYETHYLENE GLYCOL 3350 17 GM PKT PO SCH (10:23)
[2018-11-02] MEDS: DEXAMETHASONE 4 MG TAB PO SCH (10:23)
[2018-11-02] MEDS: HYDROCODONE/APAP 5/325 TAB PO PRN ×2 (11:10→17:27)
[2018-11-02] MEDS ORDERED: IBUPROFEN 600 MG TAB PO PRN (13:15)
--- NOTE | 2018-11-02 13:21 | HOSPPROG ---
Hospitalist Progress Note Assessment/Plan: 88yo M with prostate cancer with diffuse osseous metastases here with constipation. Goals of Care: Long conversation with patient, daughter, 10/31. Again discussed today. Essentially his goals are in line with hospice care. He does not want any aggressive therapy or new/additional therapies. Meeting with rep from [facility] hospice this afternoon 1. Constipation: Essentially resolved. Will continue maintenance therapy with daily miralax. 2. Acute on chronic cancer pain: Controlled. CT with progression of osseus mets. - Discussed with Dr Brandt, could consider caudal epidural but patient not interested - Started dexamethasone 10/31, continue hydrocodone PRN 3. Right shoulder pain: Exam consistent with supraspinatus tear. - Check shoulder x-ray, trial ibuprofen - This is limiting ability to work with therapy. Will consult IR for possible shoulder injection tomorrow - PT 4. Atrial flutter: New 10/31. Asymptomatic and BP stable. - He is not interested in rate controlling meds or other therapies (ie. cardioversion) as long as he's asymptomatic - He does not want anticoagulation - Stopped telemetry 5. Hyponatremia: Improved with IVF. 6. Hypocalcemia: Suspect r/t lack of PO intake. Replete and monitor. 7. Leukocytosis: Down-trending. Likely r/t recent steroids. No s/s infection. 8. Anemia: Chronic and near baseline. 9. Metastatic prostate cancer: Oncology aware of admission. Involving palliative care as above. 10. Deconditioning: Rather weak. - PT/OT recommending SNF, patient refusing VTE ppx: LMWH Code: DNR Diet: regular Dispo: Remain inpatient, unsafe for dc at this time. Dispo unclear. Possible home with home health vs SNF vs inpatient hospice. Subjective: Sittingup in chair. Shaved this morning. Having lots of right shoulder pain that isn't controlled with norco. Othewise pain level is manageable. No BM yet today. Objective: Vital Signs Temp Pulse Resp BP Pulse Ox 36.4 C 98 18 108/73 92 11/02/18 10:20 11/02/18 10:20 11/02/18 10:20 11/02/18 10:20 11/02/18 10:20 Laboratory Results 10/30/18 04:45 11/01/18 04:41 11/01/18 11/02/18 11/03/18 05:59 05:59 05:59 Intake Total 2194 7841 Output Total 850 300 Balance 1346 1986 - Physical Exam Constitutional: cachectic, other (frail, elderly) Eyes: anicteric sclera Ears, Nose, Mouth, Throat: moist mucous membranes Cardiovascular: no murmur, rub, or gallop, tachycardia, No edema Respiratory: no respiratory distress, no rales or rhonchi, clear to auscultation Gastrointestinal: normoactive bowel sounds, soft, non-tender abdomen, no palpable masses Genitourinary: no bladder fullness, no bladder tenderness, no renal bruits Skin: no rashes or abrasions, no fluctuance, no induration Musculoskeletal: generalized weakness, other (right shoulder pain and weakness) Neurologic: AAOx3, sensation intact bilaterally Psychiatric: interacting appropriately, not anxious, not encephalopathic, thought process linear ICD10 Worksheet Patient Problems: Problems Problem Status Onset Abdominal pain Acute Constipation Acute LAD (lymphadenopathy), intra-abdominal Acute Pancreatitis, acute Acute Prostate enlargement Acute
[2018-11-02] MEDS ORDERED: MELATONIN 3 MG TAB PO PRN (21:50)
[2018-11-03] MEDS: HYDROCODONE/APAP 5/325 TAB PO PRN ×2 (05:50→12:03)
[2018-11-03] MEDS: LEVOTHYROXINE 50 MCG TAB PO SCH (05:50)
[2018-11-03 07:57] VITALS: BP 105/75
[2018-11-03] MEDS: POLYETHYLENE GLYCOL 3350 17 GM PKT PO SCH (09:00)
[2018-11-03] MEDS: MULTIVITAMINS 1 EACH TAB PO SCH (09:00)
[2018-11-03] MEDS: DEXAMETHASONE 4 MG TAB PO SCH (09:00)
--- NOTE | 2018-11-03 12:09 | GDS ---
ALL DIAGNOSES: 1. Constipation. 2. Prostate cancer with osseous metastatic disease, with acute on chronic pain. 3. Right clavicle fracture. 4. Atrial flutter, not interested in any therapies for this. 5. Hyponatremia. 6. Hypocalcemia. 7. Leukocytosis. 8. Anemia. 9. Deconditioning. HOSPITAL COURSE: This is an 88-year-old man who was admitted with acute on chronic pain from diffuse osseous mets from his prostate cancer. He was also admitted with severe constipation. His constipation has resolved with an aggressive bowel regimen. He has been on oral pain medications for his cancer- related pain. Dexamethasone was started on October 31. He may also continue [place] as needed, as well as Aleve as needed. I have started him on Protonix for GI prophylaxis, given steroids, as well as NSAIDs being instituted. He has had some ongoing right shoulder pain. He was found to have a right clavicle fracture. He is really not a surgical candidate. I have placed him in a sling. He is requesting that we use an Amish wrap around his body to stabilize his arm next to his body. We will try this prior to discharge. He may follow up with Dr. Conner in 1-2 weeks - I discussed with his PA. FOLLOWUP: He should follow up with Dr. Andrade for ongoing management of his metastatic prostate cancer. He will follow up with Bib for ongoing support. BILLING: I spent more than 30 minutes on the day of discharge coordinating care. /[id number]/MODL MTDD
--- NOTE | 2018-11-03 14:22 | ASMTCMCOM ---
CM Note CM Note Notes: CM spoke with Camille with [facility], she shares the family is considering rehab for strengthening and will follow up. CM met with patient and family, they are open to referrals being sent for locations convenient to [place]. CM to place referrals. CM to follow. Plan: SNF Plan: SNF? Date Signed: 11/02/2018 04:33 PM Electronically Signed By:Natalia Olsen
--- NOTE | 2018-11-03 14:23 | ASMTLACE ---
LACE Length of stay for Answers: 4-6 days current admission Comorbidities - select Answers: Any tumor (including all that apply lymphoma or leukemia) # of Emergency department Answers: 1-2 visits in the last 6 months Score: 7 Date Signed: 11/03/2018 01:52 PM Electronically Signed By:Elisabeth Mauro RN
--- NOTE | 2018-11-03 14:23 | ASMTCMCOM ---
CM Note CM Note Notes: Patient plan of care reviewed in rounds. He is medically cleared for discharge to SNF. Per family, preference is for [facility]. Liz from [facility] is able to accept. Final orders faxed to [facility] , verified receipt. Family informed. RN aware. Transfer via wheelchair Van at 3:30 pm. RN to call report. CM available should other needs arise. Plan: To Snf. Date Signed: 11/03/2018 02:01 PM Electronically Signed By:Elisabeth Mauro RN
--- NOTE | 2018-11-03 15:18 | PDIAF ---
- Diagnosis Diagnosis: metastatic prostate cancer with pain; clavicle fracture Code Status: Do Not Resuscitate - Medication Management Discharge Medications: electronically signed and located in the Home Medication List. - Orders Services needed: Registered Nurse, Certified Stamping Press Operator, Physical Therapy, Occupational Therapy Diet Recommendation: no restrictions on diet Additional Instructions: wear sling at all times follow up with Dr Conner for clavicle fracture if necessary - Labs/Radiology BMP Date: 11/07/18 - Follow Up Care Current Providers and Referrals: Edward Andrade MD [Medical Doctor] - As per Instructions Patient,NotPresent [Unknown] - As per Instructions Amaury Conner MD [Medical Doctor] -
--- NOTE | 2018-11-03 15:22 | PDIAF ---
- Diagnosis Diagnosis: metastatic prostate cancer with pain; clavicle fracture Code Status: Do Not Resuscitate - Medication Management Discharge Medications: electronically signed and located in the Home Medication List. - Orders Services needed: Registered Nurse, Certified Bingo Manager, Physical Therapy, Occupational Therapy Diet Recommendation: no restrictions on diet Additional Instructions: wear sling at all times follow up with Dr Conner for clavicle fracture in 1-2 weeks - Labs/Radiology BMP Date: 11/07/18 - Follow Up Care Current Providers and Referrals: Edward Andrade MD [Medical Doctor] - As per Instructions Patient,NotPresent [Unknown] - As per Instructions Amaury Conner MD [Medical Doctor] -
--- NOTE | 2018-11-04 14:48 | ASDISCHSUM ---
Discharge Information Plan Status:SNF Medically Cleared to Leave:11/02/2018 Discharge Date:11/03/2018 03:55 PM D/C Disposition:Snf Facility ADT D/C Disposition:Snf Facility Projected Discharge Date:11/03/2018 11:00 AM Transportation at D/C: Discharge Delay Reason: Follow-Up Date:11/03/2018 11:00 AM Discharge Slot: Final Diagnosis: Placement Information Referral Type:*Hospice Referral ID:[id number] Provider Name: Address 1: Phone Number: Address 2: Fax Number: City: Selection Factors: State: Referral Type:Acute Care Referral ID:[id number] Provider Name:Shailesh patterson [place] Address 1:[address] [facility] Address 2: City:[place] Selection Factors: State:[place] Referral Type:Palliative Care Referral ID:[id number] Provider Name:[facility] Address 1:[address] Address 2: City:[place] Selection Factors: State:[place] Patient Contact Information Contact Name:LEONOR Relationship: [address] [facility] [address] City:[place] Alternate Phone: [facility]/Zip Code:[place] [address] Email: Financial Information Financial Class:Medicare Advantage Plans Primary Plan Desc:[employer] [facility] [employer] Primary Plan Number:[id number] Secondary Plan Desc: Secondary Plan Number: Assessment Information [facility] CM Progress Note CM Note CM Note Notes: 88 year old male admitted via ED with c/o increasing constipation and weakness. 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 Normally lives with his in [facility]. His PCP is there but he is followed by [facility]. Andrade at [facility]. to follow for needs.| Plan: TBD Date Signed: 10/27/2018 02:28 PM Electronically Signed By:Elisabeth Mauro RN LACE LACE Length of stay for Answers: 4-6 days current admission Comorbidities - select Answers: Any tumor (including all that apply lymphoma or leukemia) # of Emergency department Answers: 1-2 visits in the last 6 months Score: 7 Date Signed: 11/03/2018 01:52 PM Electronically Signed By:Elisabeth Mauro RN [facility] CM Progress Note CM Note CM Note Notes: Patient plan of care reviewed in am rounds. Willian is an 88 year old male who is visiting from [place] with his daughter. He has had increasing weakness, dehydration and constipation over the last few weeks. Per CT his disease is advancing and he may be palliative care appropriate. CM to follow for needs. Plan: TBD Date Signed: 10/28/2018 01:47 PM Electronically Signed By:Elisabeth Mauro RN [facility] CM Progress Note CM Note CM Note Notes: Patient plan of care reviewed in am rounds. He is still having c/o constipation. Per therapy he is deconditioned and may need SNF rehab. He lives in [place] and wishes to return there. CM to follow for needs. Plan: D Date Signed: 10/29/2018 03:03 PM Electronically Signed By:Elisabeth Mauro RN [facility] CM Progress Note CM Note CM Note Notes: Met with patient how is adamant that he is not goiing to SNF. He states he is not going to walk or climb up stairs . He became tearful and states he thinks he is ready to pursue his options for end of life care. He has one goal in his life to finish involving a sale of property here in [place]. I attempted to reach out to his family but they were unavailable without a identifying voice mail. CM to follow. Would likely benefit from palliative/hopsice care. Plan: TBD Date Signed: 10/30/2018 03:48 PM Electronically Signed By:Elisabeth Mauro RN [facility] Progress Note CM Note CM Note Notes: Discussed pt's care in rounds. Hospitalist to speak with pt today re hospice care. Family has said that they are unable to care for him at home and pt has refused referral to SNF. It is unclear whether in-pt hospice is an option. CM to follow. D/C Plan: TBD Date Signed: 10/31/2018 02:26 PM Electronically Signed By:Courtney Daugherty [facility] Progress Note CM Note CM Note Notes: Reviewed chart regarding discharge plan of care, pt's progress. Per unit rounds, pt's abdominal pain is much improved today. Pt with a new onset of afib/aflutter. Per Dr. Dunlap, pt's goals of care align with hospice - hospice eval and treat order obtained. Referral sent to [facility]. Call placed to Isabel at [facility], per Isabel able to send an RN for an evaluation Saturday at 10:00 AM. Met with pt, pt's Melinda and spoke with pt's dghtr Odalis (via phone). Family requesting later meeting time on Saturday. Call placed to Isabel at [facility], meeting moved to 14:00. Updates provided to ROSHAN Ford, Iain, EDMOND, and Dr. Dunlap. Dghtr wishing to discuss both palliative and hospice options. Per , Melinda, taking pt "home to his dghtr's house may not be an option given his current needs and level of care." Pt and are [place] from [place] of [place]. Update provided to [facility]. CM will continue to follow. Discharge Plan: To be determined Date Signed: 11/01/2018 04:39 PM Electronically Signed By:Chayito Gonsales RN [facility] Progress Note CM Note CM Note Notes: ARIANA spoke with Camille with [facility], she shares the family is considering rehab for strengthening and will follow up. CM met with patient and family, they are open to referrals being sent for locations convenient to [place]. CM to place referrals. CM to follow. Plan: SNF Plan: SNF? Date Signed: 11/02/2018 04:33 PM Electronically Signed By:Natalia Olsen [facility] CM Progress Note CM Note CM Note Notes: Patient plan of care reviewed in rounds. He is medically cleared for discharge to SNF. Per family, preference is for [facility]. Liz from [facility] is able to accept. Final orders faxed to [facility] , verified receipt. Family informed. RN aware. Transfer via wheelchair Van at 3:30 pm. RN to call report. CM available should other needs arise. Plan: To Snf. Date Signed: 11/03/2018 02:01 PM Electronically Signed By:Elisabeth Mauro RN Intervention Information Intervention Type:*IM-Signed Date of Service:11/03/2018 12:29 PM Patient Type:Inpatient Staff Member:Anya Encinas Hours: Discipline: Severity: Comment:
== END 2018-11-03 15:55 | DRG 392 ==
LOC: EDUNIT# → F1N 14:01 → OBSVTOIN 10-28 16:29
PROVIDERS: ADMIT Internal Medicine; ATTEND Internal Medicine
DX: K59.03 Drug induced constipation (principal); C79.51 Secondary malignant neoplasm of bone; M84.411A Pathological fracture, right shoulder, initial encounter for fracture; C61 Malignant neoplasm of prostate; G89.3 Neoplasm related pain (acute) (chronic); Z66 Do not resuscitate; R00.0 Tachycardia, unspecified
CPT/HCPCS: 82435-PO; 82565-PO; 82947-PO; 84132-PO; 84295-PO; 84520-PO; 85014-PO; 97110-GP; 97162-GP; 97166-GO; 97530-GO; 97530-GP; 97535-GO; G0378; G8978-GP-CM; G8979-GP-CK; G8987-GO-CL; G8988-GO-CJ; G8989-GO-CL; J1650; J3010; Q9967